=== PATIENT | female | born 1935 | race Caucasian/White ===

== ENCOUNTER → 2019-09-19 | Outpatient (CLI) | payer MEDICARE ==
[~2019-09-19] MED LIST: REGADENOSON 0.4 MG/5 ML SYRINGE IV ONE
--- NOTE | 2019-09-19 12:21 | NM ---
"EXAMINATION TYPE: NM stress lexiscan cardiolite DATE OF EXAM: 09/19/2019 COMPARISON: NONE HISTORY: I 25.10, preop, coronary artery disease TECHNIQUE: After the intravenous administration of 9.98 mCi Tc 99m Sestamibi - Cardiolite resting SP ECT images acquired 50 minutes post injection. The patient received 0.4mg Lexiscan, 26.4 mCi Tc 99m Sestamibi - Stress images obtained [address] injection FINDINGS: Review of stress and rest SPECT images demonstrates decreased radiopharmaceutical uptake along the in ferior wall the left ventricle towards the base of the heart on stress as compared to rest images. G ated analysis shows normal wall motion with an estimated left ventricular ejection fraction of 67 %. IMPRESSION: Pharmacologically induced left ventricular myocardial ischemia. Consider echocardiographic correlatio n for elevated ejection fraction A Yellow level critical message alert has been initiated for Claudy Maldonado MD via the [employer] | Critical Results System on 09/19/2019 12:18 PM. This message alert has been sent to Claudy Maldonado MD vi a the preferences provided by the clinician for the receipt of Radiology Critical Findings. Message I D [id number]."
--- NOTE | 2019-09-19 13:18 | ECHOF ---
Referral Reason:I25.10 Atherosclerotic heart disease of [place]... MEASUREMENTS -------- HEIGHT: 149.9 cm WEIGHT: 108.9 kg BP: RVIDd: 3.0 cm (< 3.3) IVSd: 1.2 cm (0.6 - 1.1) LVIDd: 3.5 cm (3.9 - 5.3) LVPWd: 1.2 cm (0.6 - 1.1) IVSs: 1.5 cm LVIDs: 2.6 cm LVPWs: 1.7 cm LA Diam: 3.2 cm (2.7 - 3.8) Ao Diam: 2.9 cm (2.0 - 3.7) AV Cusp: 2.0 cm (1.5 - 2.6) MV EXCURSION: 6.833 mm (> 18.000) MV EF SLOPE: 20 mm/s (70 - 150) EPSS: 0.7 cm MV E Jose: 0.69 m/s MV DecT: 310 ms MV A Jose: 0.99 m/s MV E/A Ratio: 0.70 RAP: 5.00 mmHg RVSP: 16.65 mmHg FINDINGS -------- Sinus rhythm. This was a technically adequate study. The left ventricular size is normal. There is borderline concentric left ventricular hypertrophy. Overall left ventricular systolic function is normal with, an EF between 60 - 65 %. The right ventricle is normal in size. The left atrial size is normal. The right atrium is normal in size. Interatrial and interventricular septum intact. There is mild aortic valve sclerosis. The mitral valve leaflets are mildly thickened. Mild mitral annular calcification present. Mild m itral regurgitation is present. Mild tricuspid regurgitation present. Right ventricular systolic pressure is normal at < 35 mmHg. The pulmonic valve was not well visualized. The aortic root size is normal. Normal inferior vena cava with normal inspiratory collapse consistent with estimated right atrial pre ssure of 5 mmHg. Echo free space may represent effusion or a pericardial fat pad. CONCLUSIONS -------- 1. Sinus rhythm. 2. This was a technically adequate study. 3. The left ventricular size is normal. 4. There is borderline concentric left ventricular hypertrophy. 5. Overall left ventricular systolic function is normal with, an EF between 60 - 65 %. 6. The right ventricle is normal in size. 7. The left atrial size is normal. 8. The right atrium is normal in size. 9. Interatrial and interventricular septum intact. 10. There is mild aortic valve sclerosis. 11. The mitral valve leaflets are mildly thickened. 12. Mild mitral annular calcification present. 13. Mild mitral regurgitation is present. 14. Mild tricuspid regurgitation present. 15. Right ventricular systolic pressure is normal at < 35 mmHg. 16. The pulmonic valve was not well visualized. 17. The aortic root size is normal. 18. Normal inferior vena cava with normal inspiratory collapse consistent with estimated right atrial pressure of 5 mmHg. 19. Echo free space may represent effusion or a pericardial fat pad. DOUGH MIXER HELPER: Wendy Leslie RDCS
--- NOTE | 2019-09-19 15:10 | EST ---
EXERCISE STRESS AGE: 84 SEX: F HT: 60" WT: 250 PROTOCOL: Lexiscan Cardiolite Stress Test HEART RATE REST: 87 BLOOD PRESSURE REST: 118/71 MAXIMUM HEART RATE ACHIEVED: 107 MAXIMUM BLOOD PRESSURE: 122/55 85% MPHR: 116 100% MPHR: 136 INDICATIONS: Preoperative. CLINICAL INFORMATION: Baseline EKG revealed normal sinus rhythm without significant ST changes. With Lexiscan administration, heart rate changed from 87 to 107 beats per minute, blood pressure changed from 118/71 to 122/55. EKG did not reveal any ST-segment changes to indicate ischemia. Rare PVCs were noted. Patient did not have any significant symptoms. By EKG criteria, this is an unremarkable Lexiscan stress test. The nuclear scan results which are more pertinent will be reported by the radiologist. [place] / IJN: [id number] /
== END | disposition home or self-care (01) ==
LOC: RADNMMAIN 08:13
PROVIDERS: ATTEND Internal Medicine Geriatric Medicine
DX: I08.1 Rheumatic disorders of both mitral and tricuspid valves (principal); I25.10 Atherosclerotic heart disease of native coronary artery without angina pectoris; I25.9 Chronic ischemic heart disease, unspecified
CPT/HCPCS: 93017; 93306; 78452; A9500; J2785

== ENCOUNTER 2019-10-19 10:54 | Inpatient (IN) | payer MEDICARE, BC ==
[~2019-10-19 10:54] MED LIST changes: +ALPRAZolam 0.25 MG TAB PO PRN; +ALPRAZolam 0.5 MG TAB PO PRN; +ASPIRIN 325 MG TAB PO STA; +ATORVASTATIN 80 MG TAB PO STA; +NITROGLYCERIN SL TABS 0.4 MG TAB SUBLINGUAL PRN; -REGADENOSON 0.4 MG/5 ML SYRINGE IV ONE; +SODIUM CHLORIDE 0.9% 1,000 ML in EMPTY BAG 1 BAG IV ONE
[2019-10-19 11:35] LABS: Glucose,Whole Blood 123 mg/dL (75-99)
[2019-10-19] MEDS ORDERED: SODIUM CHLORIDE 0.9% 1,000 ML IV ONE (11:35)
[2019-10-19] MEDS: MIDAZOLAM 2 MG/2 ML VIAL IVP ONE ×2 (11:49→12:32)
[2019-10-19 11:52] LABS: Basophils % (A) 0 %; Eosinophils # (A) 0.1 k/uL (0-0.7); Eosinophils % (A) 1 %; HCT 39.5 % (34.0-46.0); Lymphocytes # (A) 1.5 k/uL (1.0-4.8); Lymphocytes % (A) 16 %; MCH 29.9 pg (25.0-35.0); MCHC 32.8 g/dL (31.0-37.0); Mean Platelet Volume 7.2; Monocytes # (A) 0.5 k/uL (0-1.0); Monocytes % (A) 6 %; Neutrophils # (A) 6.9 k/uL (1.3-7.7); Neutrophils % (A) 75 %; Platelet Count 360 k/uL (150-450); RBC 4.34 m/uL (3.80-5.40); RDW 13.2 % (11.5-15.5); WBC 9.1 k/uL (3.8-10.6)
[2019-10-19] MEDS ORDERED: LIDOCAINE 1% INJ 10MG/ML (20 ML MDV) SQ ONE (11:52)
[2019-10-19] MEDS ORDERED: VERAPAMIL SYRINGE (5 MG/10 ML) INTRAARTER ONE (11:53)
[2019-10-19] MEDS ORDERED: HYDROmorphone 1 MG/ML 1 ML SYRINGE IVP ONE (11:54)
[2019-10-19] MEDS ORDERED: HEPARIN SODIUM 1,000 UN/ML (10ML VL) IV ONE (11:55)
[2019-10-19 12:13] LABS: Calcium 9.7 mg/dL (8.4-10.2); Potassium 4.4 mmol/L (3.5-5.1)
[2019-10-19] MEDS ORDERED: IOPAMIDOL-370 125ML BTL INJ ONE (12:32)
[2019-10-19] MEDS ORDERED: IOPAMIDOL-370 100ML BTL INJ ONE ×2 (12:35)
[2019-10-19] MEDS ORDERED: RX INFO: IV CONTRAST WAS GIVEN 1 EACH MISC MISCELLANE PRN (12:48)
[2019-10-19] MEDS ORDERED: SODIUM CHLORIDE 0.9% 1,000 ML IV SCH (13:00)
--- NOTE | 2019-10-19 14:20 | CC ---
CARDIAC CATHETERIZATION REPORT DATE OF SERVICE: October 19, 2019 PERFORMING PHYSICIAN: Jayy Canela M.D. PROCEDURE PERFORMED: 1. Selective right and left coronary angiogram. 2. Left heart catheterization. INDICATION: This is a very pleasant 84-year-old female patient with history of diabetes, hypertension, and dyslipidemia, was experiencing recently chest discomfort and also scheduled to undergo knee surgery. Myocardial perfusion imaging stress test was performed and revealed inferior ischemia. Because of that, the patient was referred for further cardiac evaluation and scheduled to undergo a heart catheterization. APPROACH: Right radial artery. COMPLICATION: None. LEVEL OF SEDATION: Moderate with sedation length of 47 minutes. PROCEDURE DESCRIPTION: After obtaining an informed consent, the patient was brought to the cardiac warehouse laborer. The right radial artery was cannulated using micropuncture technique, the micropuncture wire passed easily. Then I placed a 6-Finnish sheath in the right radial artery. After that, I gave the patient 2 mg of verapamil IA and 10,000 units of heparin IV. Selective right and left coronary angiogram performed using JR4 and JL3.5 catheters. After that, I did leave heart catheterization using 5-Finnish pigtail catheter. The procedure was completed without any complication. SELECTIVE CORONARY ANGIOGRAM: 1. The right coronary artery is a medium to large caliber vessel. The ostial right appeared to be extremely calcified with a lesion in the range of 99.9%. The mid right has another plaque difficult to assess the severity of it, but appeared to be in the range of 70%. The RCA distally appeared to have mild disease only. 2. The left main is calcified but angiographically normal. It bifurcates into LCX and LAD. 3. The LCX is a large caliber vessel. It is a codominant vessel. The proximal left circumflex appeared to be normal and gives rise into OM1, which has mild disease only. The mid circumflex is normal and the circumflex distally appeared to be normal and bifurcates into PDA and PLV branches. Both appeared to be angiographically normal. 4. The LAD: The proximal LAD appeared to be angiographically normal. The mid LAD gives rise into a medium-sized diagonal branch which seems to be angiographically normal. The LAD after that has a tubular lesion seems to be in the range of 70% to 80%. The LAD distally appeared to be angiographically normal. 5. Extensive left to right collaterals seen filling the distal right coronary artery. HEMODYNAMICS: The LVEDP was about 12 mmHg without significant gradient across the aortic valve. CONCLUSION: 1. Extremely calcified right and left coronary systems. 2. Critical disease involving calcified ostial right coronary artery. 3. Severe disease involving calcified mid left anterior descending artery. POSTPROCEDURE MANAGEMENT: 1. An attempt to wire the RCA was performed today from right radial approach, but because of the right subclavian was extremely tortuous, I could not engage the right coronary artery. 2. Having said that, the patient will be brought to have a PCI of the LAD and RCA to be performed from right common femoral artery approach. MMODL / IJN: [id number] /
[2019-10-19 16:57] LABS: Glucose,Whole Blood 104 mg/dL (75-99)
[2019-10-19 21:02] LABS: Glucose,Whole Blood 104 mg/dL (75-99)
[2019-10-20 06:20] LABS: Glucose,Whole Blood 102 mg/dL (75-99)
[2019-10-20 07:25] LABS: Potassium 4.6 mmol/L (3.5-5.1)
[2019-10-20] MEDS: INSULIN ASPART (NovoLOG) 100 UNIT/ML VIAL SQ SCH ×4 (07:51→22:02)
[2019-10-20] MEDS ORDERED: LIDOCAINE 1% INJ 10MG/ML (20 ML MDV) ONE (08:14)
[2019-10-20] MEDS ORDERED: ASPIRIN 325 MG TAB ONE (08:24)
[2019-10-20] MEDS ORDERED: ASPIRIN 325 MG TAB PO ONE (08:27)
[2019-10-20] MEDS ORDERED: MIDAZOLAM 2 MG/2 ML VIAL IV ONE (08:30)
[2019-10-20] MEDS ORDERED: LIDOCAINE 1% INJ 10MG/ML (20 ML MDV) SQ ONE (08:32)
[2019-10-20] MEDS ORDERED: BIVALIRUDIN BOLUS 250 MG/50 ML IV ONE (08:40)
[2019-10-20] MEDS ORDERED: IV FLUID CONTINUATION 500 ML IV ONE (08:41)
[2019-10-20] MEDS ORDERED: BIVALIRUDIN 250 MG in SODIUM CHLORIDE 0.9% 50 ML IV ONE ×2 (08:41→09:18)
[2019-10-20] MEDS ORDERED: fentaNYL (PF) 50 MCG/ML 2 ML AMP ONE (08:48)
[2019-10-20] MEDS: fentaNYL (PF) 50 MCG/ML 2 ML AMP IV ONE ×2 (08:49→09:51)
[2019-10-20] MEDS: NITROGLYCERIN 1000MCG/10ML SYRINGE INTRACORON ONE ×3 (08:49→10:28)
[2019-10-20] MEDS ORDERED: CLOPIDOGREL 75 MG TAB PO ONE (09:11)
[2019-10-20] MEDS ORDERED: CLOPIDOGREL 75 MG TAB ONE (09:11)
[2019-10-20] MEDS ORDERED: IOPAMIDOL-370 125ML BTL INJ ONE (09:56)
[2019-10-20] MEDS ORDERED: HYDROmorphone 1 MG/ML 1 ML SYRINGE ONE (10:12)
[2019-10-20] MEDS ORDERED: HYDROmorphone 1 MG/ML 1 ML SYRINGE IVP ONE (10:13)
[2019-10-20] MEDS ORDERED: IOPAMIDOL-370 150ML BTL INJ ONE (10:31)
[2019-10-20] MEDS ORDERED: NITROGLYCERIN SL TABS 0.4 MG TAB SUBLINGUAL PRN (10:51)
[2019-10-20] MEDS ORDERED: ZOLPIDEM 5 MG TAB PO PRN (10:51)
[2019-10-20] MEDS ORDERED: ATROPINE SULFATE 0.1 MG/ML 10ML SYRINGE IV PRN (10:51)
[2019-10-20] MEDS ORDERED: MAG HYDROX/AL HYDROX/SIMETH 30 ML CUP PO PRN (10:51)
[2019-10-20] MEDS ORDERED: RX INFO: IV CONTRAST WAS GIVEN 1 EACH MISC MISCELLANE PRN (10:51)
[2019-10-20] MEDS ORDERED: SODIUM CHLORIDE 0.9% 1,000 ML IV SCH (11:00)
[2019-10-20 11:52] LABS: Glucose,Whole Blood 98 mg/dL (75-99)
--- NOTE | 2019-10-20 13:47 | PTCA ---
PERCUTANEOUSTRANS CORORONARY ANGIOGRAPHY DATE OF SERVICE: October 20, 2019 PERFORMING PHYSICIAN: Jayy Canela M.D. PROCEDURE PERFORMED: 1. Successful stenting of the mid left anterior descending artery using 2.0 x 26 mm and 2.0 x 12 mm Plano drug-eluting stents with an excellent angiographic results and reduction of stenosis from 80% to 0%. 2. Successful stenting of the ostial right coronary artery using 2.0 x 15 mm Howard drug- eluting stent with an excellent angiographic results. 3. Successful stenting of the mid right coronary artery using 2.0 x 18 mm Howard drug- eluting stent with an excellent angiographic results. INDICATION: This is a pleasant 84-year-old female patient with a past medical history significant for diabetes, hypertension, and dyslipidemia, who was experiencing symptoms of chest discomfort. She underwent myocardial perfusion imaging stress test and that revealed reversible defect involving the inferior wall of the left ventricle. She underwent a heart catheterization yesterday and that revealed critical disease involving the ostial and mid calcified right coronary artery which is a dominant RCA as well as severe disease involving the calcified mid left anterior descending artery. The patient was brought today to undergo a PCI of the LAD and RCA from right groin approach. APPROACH: Right common femoral artery. COMPLICATION: Right aortic cusp dissection. The patient continues to be asymptomatic and stable throughout the procedure. Anticoagulation was stopped by the end of the procedure. LEVEL OF SEDATION: Moderate with sedation length of 122 minutes. PROCEDURE DESCRIPTION: After obtaining an informed consent, the patient was brought to the cardiac laborer aquatic life. The procedure in detail was discussed with her as well as with her son including the risks, benefits, complication, as well as alternatives. The patient was prepped and draped in the usual sterile fashion. Local analgesia was achieved by injecting 2% lidocaine subcutaneously. The right common femoral artery was cannulated using micropuncture technique, under ultrasound guidance, the micropuncture wire passed easily. Then I placed a 6-Welsh sheath in the right common femoral artery. At that point, I did engage the left main using an XB 3 5 LAD guide. I did wire the LAD using a long run-through wire. The run-through was positioned in the distal LAD. After that, I did balloon angioplasty using 2.5 x 12 mm balloon where I did PTCA ballooning of the mid LAD after the first large diagonal branch. Subsequently, I did advance 2.0 x 26 mm Plano drug-eluting stent where the stent was positioned under fluoroscopy guidance and deployed under 20 atmospheres for 20 seconds. The following angiogram showed an area distal to the stent appeared to be tight and calcified as well. I decided to cover that with a stent. I did PTCA ballooning first using the same 2.5 x 12 mm balloon before I deployed 2.0 x 12 mm Plano drug-eluting stent with about 1-2 mm overlap between the second stent and the first stents. The second stent was deployed under 20 atmospheres for 20 seconds. The area of overlap between the 2 stents was dilated using the stent balloon which was inflated under 20 atmospheres for 20 seconds. The following angiogram showed excellent angiographic results with reduction of stenosis from 80% to 0%. After that I did PTCA ballooning of the proximal 1st stent in the LAD using 2.5 x 12 mm NC balloon which was inflated under 20 atmospheres for 20 seconds. The following angiogram showed excellent angiographic results. Subsequently, I did decide to intervene on the right coronary artery. I did engage the right coronary artery using JR4 guide. I attempted wiring the right coronary artery using a Whisper wire, but the wire will not cross the lesion in the ostial right coronary artery. At that point, I was able to cross the lesion using Fielder XT wire. The wire was advanced to the distal right coronary artery. Attempting advancing 2.0 x 12 mm balloon was unsuccessful and the lesion was not crossed and at that point, I decided to use 1.5 x 12 mm balloon. Attempting advancing the 1.5 mm balloon also was unsuccessful because the balloon will not cross the lesion. At that point, I decided to change my wire into a stiffer wire using corsair catheter. I attempted advancing the corsair catheter, but the corsair catheter will not cross the lesion as well in the ostial right coronary artery. At that point, I did wire the RCA using a lisa wire and this time using a whisper wire. A whisper wire was advanced all the way to the distal right coronary artery and as a matter of fact, it was positioned in the PDA branch of the right coronary artery. At that point, I did pull the Fielder XT wire which was a short wire anyway as well as a corsair catheter out. I did advance a run-through wire now to the right coronary artery where the run-through was positioned in the PLV branch of the RCA. At that point, I did have two wires, the Whisper wire as well as a run-through wire as a lisa wire. After that, I was able to advance 1.5 mm balloon where I did PTCA ballooning of the ostial right coronary artery. The following angiogram showed what seems to be right cast dye staining. At that point, I did shut off the Angiomax completely and I moved quickly to finish the case knowing that the half-life of the Angiomax is only 25 minutes. After doing PTCA ballooning of the ostial right coronary artery using 1.5 mm balloon, I did ballooning using 2.0 mm balloon before I deployed 2.0 x 15 mm Plano drug-eluting stent where the stent was positioned under fluoroscopic guidance and deployed under 20 atmospheres for 20 seconds. I did after that postdilatation of the stent using 3.5 mm NC balloon. The following angiogram showed good results in the ostial right coronary artery. The mid RCA was quite tight and I did do PTCA ballooning of the lesion using 1.5 mm balloon, then 2.0 mm balloon, then 2.5 mm balloon. Advancing the 2.0 mm balloon before 1.5 was unsuccessful because the lesion was quite calcified and tight. After that I was able to advance 2.0 x 18 mm Plano drug-eluting stent where the stent was positioned under fluoroscopy guidance and deployed under 20 atmospheres for 20 seconds after the lisa wire was pulled out. The following angiogram showed good angiographic results and the procedure was completed without any complication. Both wires were pulled from the right coronary artery and the final angiogram looks good. There was dye staining in the right coronary cusp showing but not extending to the ascending aorta. A cardiothoracic surgeon was called, Dr. Wheeler, who did review the case with me as well and he decided in the state of asymptomatic scenario of the patient, as well as being hemodynamically stable, to get a CT scan done after hydrating the patient for a couple of hours. We will continue monitoring the patient very closely. POSTPROCEDURE MANAGEMENT: 1. CTA to assess of the extension of the dissection in the ascending aorta. 2. Dual anti-platelet therapy. 3. Angiomax was shut off earlier during the case. 4. Monitor the patient's symptoms as well as a hemodynamic state. 5. Follow up with the patient. MMODL / IJN: [id number] /
[2019-10-20 16:55] LABS: Glucose,Whole Blood 100 mg/dL (75-99)
--- NOTE | 2019-10-20 19:34 | CT ---
EXAMINATION TYPE: CT angio chest DATE OF EXAM: 10/20/2019 7:15 PM COMPARISON: None HISTORY: Chest pain. CT DLP: 828.9 mGycm Automated exposure control for dose reduction was used. CONTRAST: CTA scan of the thorax is performed with IV Contrast, patient injected with 100ml mL of Isovue 370. MIP images are created and reviewed. FINDINGS: Evaluation of the aortic root near is limited due to cardiac motion. Intravenous contrast bolus andriy ntrated within the left brachiocephalic and superior vena cava creates some beam hardening artifact a long the ascending aorta and along the proximal great vessels. Given these limitations, there are no findings that are suspicious for aortic dissection. No aortic aneurysm. Cardiac stents are noted. No cardiac enlargement or pericardial effusion. Pulmonary trunk and pulmonary arteries are not enlarged. There are no filling defects within the prox imal pulmonary arterial vasculature. No airspace consolidation. Proximal tracheobronchial tree is patent. No pleural effusion or pneumotho rax. Mediastinal evaluation is limited due to phase of contrast and respiratory motion. There are scattere d mediastinal lymph nodes which are nonspecific, for example aorticopulmonary arch lymph node measure s 7 mm in short axis. Mild edema within the subcutaneous tissues consistent with anasarca. No aggressive osseous lesion. There are degenerative changes throughout the thoracic and upper lumbar spine. IMPRESSION: There are no findings to suggest aortic dissection.
[2019-10-20] MEDS: hydrALAZINE HCL 20 MG/ML 1 ML VIAL IVP PRN (19:54)
[2019-10-20 20:27] LABS: Glucose,Whole Blood 110 mg/dL (75-99)
[2019-10-21 06:23] LABS: Glucose,Whole Blood 119 mg/dL (75-99)
[2019-10-21] MEDS: INSULIN ASPART (NovoLOG) 100 UNIT/ML VIAL SQ SCH ×4 (06:25→20:29)
[2019-10-21 06:43] LABS: Basophils % (A) 0 %; Eosinophils # (A) 0.1 k/uL (0-0.7); Eosinophils % (A) 1 %; HCT 36.6 % (34.0-46.0); HGB 11.8 gm/dL (11.4-16.0); Lymphocytes # (A) 0.9 k/uL (1.0-4.8); Lymphocytes % (A) 11 %; MCH 29.4 pg (25.0-35.0); MCHC 32.4 g/dL (31.0-37.0); MCV 90.7 fL (80.0-100.0); Mean Platelet Volume 7.4; Monocytes # (A) 0.4 k/uL (0-1.0); Monocytes % (A) 5 %; Neutrophils # (A) 6.2 k/uL (1.3-7.7); Neutrophils % (A) 82 %; Platelet Count 331 k/uL (150-450); RBC 4.04 m/uL (3.80-5.40); RDW 13.3 % (11.5-15.5); WBC 7.6 k/uL (3.8-10.6)
[2019-10-21 06:59] LABS: Calcium 9.1 mg/dL (8.4-10.2); Magnesium 1.7 mg/dL (1.6-2.3); Potassium 4.1 mmol/L (3.5-5.1)
[2019-10-21] MEDS: hydrALAZINE HCL 20 MG/ML 1 ML VIAL IVP PRN (08:31)
[2019-10-21] MEDS: CLOPIDOGREL 75 MG TAB PO SCH (08:31)
[2019-10-21] MEDS ORDERED: fentaNYL (PF) 50 MCG/ML 2 ML AMP ONE (09:33)
[2019-10-21] MEDS ORDERED: fentaNYL (PF) 50 MCG/ML 2 ML AMP IV ONE (09:40)
[2019-10-21] MEDS ORDERED: BENZOCAINE SPRAY 1 CAN MUCOUS MEM ONE (09:40)
[2019-10-21] MEDS ORDERED: MIDAZOLAM 2 MG/2 ML VIAL IV ONE (09:40)
[2019-10-21] MEDS ORDERED: IV FLUID CONTINUATION 500 ML IV ONE (09:43)
--- NOTE | 2019-10-21 11:31 | ECHOT ---
TRANSESOPHAGEAL ECHOCARDIOGRAM DATE OF SERVICE: October 21, 2019 PERFORMING PHYSICIAN: Jayy Canela M.D. PROCEDURE PERFORMED: Transesophageal echocardiogram. INDICATIONS: This is a very pleasant 84-year-old female patient who underwent yesterday successful percutaneous coronary intervention on a complex and calcified lesion involving the ostial right coronary artery with good angiographic results by the end, but with complication of aortic cusp dissection and dye staining. She did good overnight. The transthoracic echocardiogram after the procedure revealed no evidence of clear-cut dissection. The patient continues to be asymptomatic. The patient is living about 2 hours away and because I want to make sure there is no evidence of dissection or aortic insufficiency I decided to pursue with a transesophageal echocardiogram. COMPLICATION: None. LEVEL OF SEDATION: Moderate with sedation length of 10 minutes. PROCEDURE DESCRIPTION: After obtaining an informed consent, the patient was brought to the transesophageal echocardiogram room. A pulse oximetry and heart rate monitors were attached to the patient. Subsequently, the patient was turned into left lateral position. A wedge pillow was placed behind the patient's back to support her. After that, the patient's throat was sprayed using lidocaine. After that and after conscious sedation was achieved, I did advance the transesophageal echocardiogram probe to the mid esophageal where 2D echocardiogram images, color Doppler images, pulse and continuous-wave Doppler images, were performed. Particular attention was paid to the aortic root and aortic valve in general. The procedure was completed without any complication. FINDINGS: The left ventricular dimension and systolic function appeared to be within normal limits. The ejection fraction appeared to be in the range of 55% to 60%. The right ventricle appeared to be within normal limits for dimension as well as function. The left atrium appeared to be mildly dilated. The left atrial appendage appeared to be free from any thrombus. The interatrial septum appeared to be intact by color-flow Doppler. The aortic valve is thickened and calcified, but it is a trileaflet valve without stenosis or insufficiency. The mitral valve seems to be thickened as well with evidence of mild to moderate MR. There was mild tricuspid regurgitation seen and mild pulmonic insufficiency. The aortic root appeared to be calcified, but there was no clear-cut of dissection identified. CONCLUSION: 1. No evidence of aortic dissection was identified. 2. Aortic sclerosis without stenosis and without insufficiency. 3. Thickened mitral valve leaflets with mild to moderate mitral regurgitation. 4. Normal left ventricular dimension and systolic function. 5. Normal right ventricular dimension and systolic function. 6. Mild biatrial enlargement. 7. Intact interatrial septum without any evidence of shunt. 8. No evidence of pericardial effusion. MMODL / IJN: [id number] /
[2019-10-21 11:38] LABS: Glucose,Whole Blood 105 mg/dL (75-99)
[2019-10-21 12:21] VITALS: BMI 50.8
[2019-10-21 16:48] LABS: Glucose,Whole Blood 114 mg/dL (75-99)
[2019-10-21 20:29] LABS: Glucose,Whole Blood 138 mg/dL (75-99)
[2019-10-22 01:55] VITALS: RESP 18
[2019-10-22 06:08] LABS: Glucose,Whole Blood 116 mg/dL (75-99)
[2019-10-22] MEDS: INSULIN ASPART (NovoLOG) 100 UNIT/ML VIAL SQ SCH ×2 (06:08→11:45)
[2019-10-22] MEDS: CLOPIDOGREL 75 MG TAB PO SCH (08:49)
[2019-10-22 08:55] VITALS: BP 117/64; PULSE 93; TEMP 97.8
--- NOTE | 2019-10-22 09:23 | DS ---
DISCHARGE SUMMARY DATE OF ADMISSION: October 19, 2019 DISCHARGE DATE: October 22, 2019 BRIEF HISTORY: This is a very pleasant 84-year-old female patient with diabetes, hypertension, and dyslipidemia, who was experiencing symptoms of chest discomfort and underwent myocardial perfusion imaging stress test which revealed inferior ischemia. Subsequently, a heart catheterization was performed and revealed critical disease involving the RCA and severe disease involving the LAD. The patient underwent successful stenting of the RCA and LAD with the procedure complicated by right coronary dissection. The CT scan of the chest was performed and did not reveal any evidence of dissection as well as a DIMITRI was performed which did not reveal any evidence of dissection. The patient continues to be asymptomatic during her hospital stay and also continues to be hemodynamically stable. The patient is going to be discharged home on dual antiplatelet therapy and I will follow up with the patient next week in the office. JOSE / SHERLYN: [id number] /
--- NOTE | 2019-10-22 10:38 | ECHOF ---
Referral Reason:AORTIC DISECTION MEASUREMENTS -------- HEIGHT: 152.4 cm WEIGHT: 116.6 kg BP: RVIDd: 3.1 cm (< 3.3) IVSd: 1.0 cm (0.6 - 1.1) LVIDd: 3.7 cm (3.9 - 5.3) LVPWd: 1.2 cm (0.6 - 1.1) IVSs: 1.3 cm LVIDs: 2.4 cm LVPWs: 1.7 cm Ao Diam: 2.7 cm (2.0 - 3.7) AV Cusp: 1.8 cm (1.5 - 2.6) LA Diam: 4.0 cm (2.7 - 3.8) MV EXCURSION: 12.495 mm (> 18.000) MV EF SLOPE: 84 mm/s (70 - 150) EPSS: 0.4 cm MV E Jose: 1.01 m/s MV DecT: 227 ms MV A Jose: 1.30 m/s MV E/A Ratio: 0.78 RAP: 5.00 mmHg RVSP: 27.81 mmHg FINDINGS -------- Sinus rhythm. This was a technically difficult study with suboptimal views. The left ventricular size is normal. There is mild concentric left ventricular hypertrophy. Overa ll left ventricular systolic function is normal with, an EF between 55 - 60 %. The right ventricle is mildly enlarged. The left atrial size is normal. The right atrial size is normal. Aortic valve is trileaflet and is mildly thickened. The mitral valve is normal. The mitral valve leaflets are mildly thickened. Mild mitral annular c alcification present. Mild mitral regurgitation is present. The tricuspid valve appears structurally normal. Mild tricuspid regurgitation present. Right vent ricular systolic pressure is normal at < 35 mmHg. There is no pulmonic regurgitation present. Cannot exclude possible aortic dissection. Artifact seen in the acsending. There is no pericardial effusion. CONCLUSIONS -------- 1. Sinus rhythm. 2. This was a technically difficult study with suboptimal views. 3. The left ventricular size is normal. 4. There is mild concentric left ventricular hypertrophy. 5. Overall left ventricular systolic function is normal with, an EF between 55 - 60 %. 6. The right ventricle is mildly enlarged. 7. The left atrial size is normal. 8. The right atrial size is normal. 9. Aortic valve is trileaflet and is mildly thickened. 10. The mitral valve is normal. 11. The mitral valve leaflets are mildly thickened. 12. Mild mitral annular calcification present. 13. Mild mitral regurgitation is present. 14. The tricuspid valve appears structurally normal. 15. Mild tricuspid regurgitation present. 16. Right ventricular systolic pressure is normal at < 35 mmHg. 17. There is no pulmonic regurgitation present. 18. Cannot exclude possible aortic dissection. Artifact seen in the acsending. 19. There is no pericardial effusion. COOK RESTAURANT: Lin Arora RDCS
[2019-10-22 11:34] LABS: Glucose,Whole Blood 114 mg/dL (75-99)
== END 2019-10-22 11:56 | disposition home health service (06) | DRG 246 ==
LOC: CATHCVL 10:54 → 3SCARD 14:43 → CATHCVL 10-21 08:21 → 3SCARD 10-21 08:21
PROVIDERS: ADMIT Internal Medicine Interventional Cardiology; ATTEND Internal Medicine Interventional Cardiology
PROC: 4A023N7 Measurement of Cardiac Sampling and Pressure, Left Heart, Percutaneous Approach (ICD-10-PCS; 2019-10-19)
PROC: B2111ZZ Fluoroscopy of Multiple Coronary Arteries using Low Osmolar Contrast (ICD-10-PCS; 2019-10-19)
PROC: 027137Z Dilation of Coronary Artery, Two Arteries with Four or More Drug-eluting Intraluminal Devices, Percutaneous Approach (ICD-10-PCS; principal; 2019-10-20 09:00)
PROC: B246ZZ4 Ultrasonography of Right and Left Heart, Transesophageal (ICD-10-PCS; 2019-10-21)
DX: I25.10 Atherosclerotic heart disease of native coronary artery without angina pectoris (principal); E11.9 Type 2 diabetes mellitus without complications; E78.5 Hyperlipidemia, unspecified; I10 Essential (primary) hypertension; I70.0 Atherosclerosis of aorta; I34.0 Nonrheumatic mitral (valve) insufficiency
CPT/HCPCS: 71275; 80048; 83735; 85025; 85347; 93306; 93312; 93320; 93325; 93458